=== PATIENT | male | born 1980 | race Asian ===

== ENCOUNTER 2017-12-22 08:35 | Emergency (ER) | payer SELFPAY ==
--- NOTE | 2017-12-22 09:08 | ED ---
Throat Pain/Nasal Congestion - HPI Summary HPI Summary: Patient is a 37-year-old male who presents emergency department for irritation swelling to his left eye times several days. Patient denies past medical history. He [place] is [place] 6 [place] and does not have a family doctor in the area. Pt. denies recent URI symptoms. He denies eye discharge but described a film that forms on eyes. He states left eye feels itchy occasionally. He denies hx of seasonal allergies. Does not wear contact lenses. Symptoms are mild in severity. No current modifying factors. - History of Current Complaint Chief Complaint: EDGeneral Time Seen by Provider: 12/22/17 08:48 Hx Obtained From: Patient - Allergies/Home Medications Allergies/Adverse Reactions: Allergies Allergy/AdvReac Type Severity Reaction Status Date / Time No Known Allergies Allergy Verified 12/22/17 08:50 PMH/Surg Hx/FS Hx/Imm Hx Previously Healthy: Yes Infectious Disease History: No Infectious Disease History: Denies: Traveled Outside the [place] in Last 30 Days Review of Systems Constitutional: Negative Positive: Other - Irriatation and swelling to left eye. ENT: Negative Cardiovascular: Negative Respiratory: Negative Neurological: Negative All Other Systems Reviewed And Are Negative: Yes Physical Exam Triage Information Reviewed: Yes Vital Signs On Initial Exam: Initial Vitals Temp Pulse Resp BP Pulse Ox 98 F 84 16 138/68 99 12/22/17 08:41 12/22/17 08:41 12/22/17 08:41 12/22/17 08:41 12/22/17 08:41 Vital Signs Reviewed: Yes Appearance: Positive: Well-Appearing - Pt. sitting on side of bed in NAD. Skin: Positive: Warm, Dry Head/Face: Positive: Normal Head/Face Inspection Eyes: Positive: Other: - Mild injection to the right conjunctiva. Left conjunctiva is injected. No drainage. Upper eyelid is mildly erythematous and edematous. Mild pain with EOM of the left. Anterior chambers clear. ENT: Positive: Pharynx normal, TMs normal. Negative: Tonsillar swelling, Tonsillar exudate Neck: Positive: Supple Neurological: Positive: Normal, CN Intact II-III Psychiatric: Positive: Affect/Mood Appropriate Diagnostics - Vital Signs Vital Signs Temp Pulse Resp BP Pulse Ox 12/22/17 08:41 98 F 84 16 138/68 99 - Laboratory Lab Statement: Any lab studies that have been ordered have been reviewed, and results considered in the medical decision making process. EENT Course/Dx - Course Course Of Treatment: Pt. presenting with irritation and mild swelling to left upper eyelid. Afebrile and well appearing. Suspect allergic conjunctvitis but given edema is unilateral will cover with erythromycin ointment and start on antihistamine as well. Recommend trying an OTC allergy eye drop. To apply warm compresses. He was given INFO for hospital clinic and [facility] for f.u. To return to ER if symptoms change or worsen. - Diagnoses Provider Diagnoses: Allergic conjunctivitis, Blepharitis Discharge - Sign-Out/Discharge Documenting (check all that apply): Patient Departure - Discharge Plan Condition: Good Disposition: HOME Prescriptions: Cetirizine* [ZyrTEC 10 MG TAB*] 10 mg PO DAILY #30 tab Erythromycin OPHTH.OINT* [Ilotycin OPHTH.OINT*] 1 applic LEFT EYE BEDTIME #1 ophth.oint Patient Education Materials: Blepharitis (ED), Allergies (ED) Referrals: [facility] [Outside] Jarrod Robin MD [Medical Doctor] - Additional Instructions: Schedule a follow up appointment with Dr. Robin Use medication as directed Recommend trying an over the counter allergy eye drop such as Naphcon Apply warm compress to eye intermittently Return to ER if symptoms change or worsen - Billing Disposition and Condition Condition: GOOD Disposition: Home
[2017-12-22 09:54] VITALS: BP 124/84
== END 2017-12-22 09:51 | disposition home or self-care (01) ==
LOC: ED 08:35
DX: H10.10 Acute atopic conjunctivitis, unspecified eye (principal); H01.009 Unspecified blepharitis unspecified eye, unspecified eyelid
CPT/HCPCS: 99282